=== PATIENT | female | born 1985 | race Caucasian/White ===

== ENCOUNTER 2019-02-12 10:44 | Observation (INO) | payer OTHER ==
[~2019-02-12] VITALS: Ht 154.9 cm; Wt 99.3 kg
[2019-02-12] MEDS ORDERED: FERR-252 PO (11:06)
[2019-02-12] MEDS ORDERED: PNV11TAB3 PO (11:06)
[2019-02-12 12:45] VITALS: BP 106/56
== END 2019-02-12 15:37 | disposition home or self-care (01) ==
LOC: MLD 10:44
PROVIDERS: ADMIT Obstetrics & Gynecology; ATTEND Obstetrics & Gynecology
DX: O26.893 Other specified pregnancy related conditions, third trimester (principal); R10.9 Unspecified abdominal pain; Z3A.37 37 weeks gestation of pregnancy
CPT/HCPCS: 76805; G0378; Q0092